=== PATIENT | female | born 1990 | race African-American/Black ===

== ENCOUNTER 2016-12-26 11:04 | Emergency (ER) | payer MEDICAID ==
[2016-12-26] MEDS ORDERED: ONDANSETRON 4 MG TAB.RAPDIS SL ONE (11:43)
--- NOTE | 2016-12-26 11:44 | ER Document Report ---
ED Medical Screen (RME) - General Chief Complaint: Abdominal Pain Stated Complaint: ABDOMINAL PAIN Time Seen by Provider: 12/26/16 11:19 Mode of Arrival: Ambulatory Information source: Patient TRAVEL OUTSIDE OF THE [place] IN LAST 30 DAYS: No - HPI Patient complains to provider of: Lower abdominal pain, nausea and vomiting Onset: Yesterday Notes: 12/26/16 11:43 Patient is a 26-year-old female presenting to the emergency room today complaining of lower abdominal pain, back pain, nausea and vomiting, symptoms started yesterday evening - Related Data Allergies/Adverse Reactions: No Known Allergies Allergy (Verified 12/26/16 11:37) Past Medical History - Social History Family history: Reviewed & Not Pertinent Renal/ Medical History: Denies: Hx Peritoneal Dialysis - Immunizations Immunizations up to date: Yes Hx Diphtheria, Pertussis, Tetanus Vaccination: Yes Physical Exam - Vital signs Vitals: Temp Pulse Resp BP Pulse Ox 98.5 F 68 14 124/84 99 12/26/16 11:09 12/26/16 11:09 12/26/16 11:09 12/26/16 11:09 12/26/16 11:09 Course - Vital Signs Vital signs: Temp Pulse Resp BP Pulse Ox 98.5 F 68 14 124/84 99 12/26/16 11:09 12/26/16 11:09 12/26/16 11:09 12/26/16 11:09 12/26/16 11:09
[2016-12-26 12:28] LABS: ABSOLUTE EOSINOPHILS # (AUTO) 0.1 10^3/uL (0.0-0.6); ABSOLUTE LYMPHOCYTES (AUTO) 2.9 10^3/uL (0.5-4.7); ABSOLUTE MONOCYTES (AUTO) 0.6 10^3/uL (0.1-1.4); ABSOLUTE NEUT (AUTO) 3.6 10^3/uL (1.7-8.2); BASOPHILS % (AUTO) 0.2 % (0-2); EOSINOPHILS % (AUTO) 0.9 % (0-6); HEMATOCRIT 35.4 % (36.0-47.0); HGB HCT DIFFERENCE 0.6; LYMPHOCYTES % (AUTO) 40.2 % (13-45); MEAN CORPUSCULAR HEMOGLOBIN 28.7 pg (27.0-33.4); MEAN CORPUSCULAR HGB CONC 33.9 g/dL (32.0-36.0); MEAN CORPUSCULAR VOLUME 85 fl (80-97); MONOCYTES % (AUTO) 8.9 % (3-13); RED BLOOD COUNT 4.18 10^6/uL (3.72-5.28); RED CELL DISTRIBUTION WIDTH 13.4 % (11.5-14.0); SEGMENTED NEUTROPHILS % (AUTO) 49.8 % (42-78); WHITE BLOOD COUNT 7.2 10^3/uL (4.0-10.5)
[2016-12-26 12:34] LABS: APPEARANCE,URINE SLIGHTLY-CLOUDY; BILIRUBIN,URINE NEGATIVE (NEGATIVE); GLUCOSE, URINE NEGATIVE (NEGATIVE); KETONES,URINE NEGATIVE (NEGATIVE); LEUKOCYTE ESTERASE,URINE NEGATIVE (NEGATIVE); NITRITE,URINE NEGATIVE (NEGATIVE); PROTEIN,URINE NEGATIVE (NEGATIVE); URINE SPECIFIC GRAVITY 1.032
[2016-12-26 12:52] LABS: ALANINE AMINOTRANSFERASE 29 U/L (9-52); ALBUMIN 3.7 g/dL (3.5-5.0); ALKALINE PHOSPHATASE 66 U/L (38-126); ANION GAP 8 (5-19); ASPARTATE AMINO TRANSFERASE 17 U/L (14-36); BILIRUBIN,DIRECT 0.2 mg/dL (0.0-0.4); BILIRUBIN,TOTAL 0.2 mg/dL (0.2-1.3); BLOOD UREA NITROGEN 12 mg/dL (7-20); CALCIUM 9.4 mg/dL (8.4-10.2); CARBON DIOXIDE 28 mmol/L (22-30); CHLORIDE 107 mmol/L (98-107); CREATININE RESULT 0.74 mg/dL (0.52-1.25); GLUCOSE 76 mg/dL (75-110); LIPASE 518.3 U/L (23-300); POTASSIUM 3.5 mmol/L (3.6-5.0); SODIUM 142.9 mmol/L (137-145); TOTAL PROTEIN 6.6 g/dL (6.3-8.2)
[2016-12-26] MEDS ORDERED: MORPHINE SULFATE 10 MG/ML INJ IV ONE (14:00)
--- NOTE | 2016-12-26 14:22 | ER Document Report ---
ED General - General Chief Complaint: Abdominal Pain Stated Complaint: ABDOMINAL PAIN Time Seen by Provider: 12/26/16 11:19 Mode of Arrival: Ambulatory TRAVEL OUTSIDE OF THE [place] IN LAST 30 DAYS: No - HPI Notes: Patient is a 26-year-old female who presents the ED complaining of 2 days of lower abdominal pain, nausea, vomiting. Patient also notes occasional discomfort with sexual intercourse. Her last actual intercourse was yesterday. Patient states that she is in a monogamous relationship and performs unprotected sex. Patient denies any history of STDs in the past. Patient states that she has not been able to keep much food down, but is able to keep some liquids down. Patient states she vomited twice this morning. The pain does not radiate otherwise. Pt having normal BM's. Patient does note occasional back pain in her low back. Patient denies any smoking or IV drug use. She denies any drug allergies. Denies any significant past medical history or daily p.o. medications. Patient denies any vaginal discharge/odor/ bleeding. Denies any headache, fever, neck pain, URI, sore throat, chest pain, palpitations, syncope, cough, shortness of breath, wheeze, dyspnea, diarrhea, urinary retention, dysuria, hematuria, loss of control of bowel or bladder, numbness/tingling, saddle anesthesia, muscle paralysis/weakness, or rash. - Related Data Allergies/Adverse Reactions: No Known Allergies Allergy (Verified 12/26/16 11:37) Past Medical History - General Information source: Patient - Social History Smoking Status: Never Smoker Chew tobacco use (# tins/day): No Frequency of alcohol use: None Drug Abuse: None Family History: Arthritis, CAD, CVA, DM, Hyperlipidemia, Hypertension, Malignancy, Thyroid Disfunction Renal/ Medical History: Denies: Hx Peritoneal Dialysis Surgical Hx: Negative - Immunizations Immunizations up to date: Yes Hx Diphtheria, Pertussis, Tetanus Vaccination: Yes Review of Systems - Review of Systems Notes: REVIEW OF SYSTEMS: CONSTITUTIONAL : Denies fever, chills, or sweats. Denies recent illness. EENT: Denies eye, ear, throat, or mouth pain or symptoms. Denies nasal or sinus congestion or discharge. Denies throat, tongue, or mouth swelling or difficulty swallowing. CARDIOVASCULAR: Denies chest pain. Denies palpitations or racing or irregular heart beat. Denies ankle edema. RESPIRATORY: Denies cough, cold, or chest congestion. Denies shortness of breath, difficulty breathing, or wheezing. GASTROINTESTINAL: see hpi GENITOURINARY: Denies difficulty urinating, painful urination, burning, frequency, blood in urine, or discharge. FEMALE GENITOURINARY: pain during intercourse. Denies vaginal bleeding, heavy or abnormal periods, irregular periods. Denies vaginal discharge or odor. MUSCULOSKELETAL: see hpi SKIN: Denies rash, lesions or sores. NEUROLOGICAL: Denies confusion or altered mental status. Denies passing out or loss of consciousness. Denies dizziness or lightheadedness. Denies headache. Denies weakness or paralysis or loss of use of either side. Denies problems with gait or speech. Denies sensory loss, numbness, or tingling. ALL OTHER SYSTEMS REVIEWED AND NEGATIVE. Dictation was performed using [employer] voice recognition software Physical Exam - Vital signs Vitals: Temp Pulse Resp BP Pulse Ox 98.5 F 68 14 124/84 99 12/26/16 11:09 12/26/16 11:09 12/26/16 11:09 12/26/16 11:09 12/26/16 11:09 Notes: PHYSICAL EXAMINATION: GENERAL: Well-appearing, well-nourished and in no acute distress. A&Ox4 HEAD: Atraumatic, normocephalic. EYES: Pupils equal round and reactive to light, extraocular movements intact, conjunctiva are normal. ENT: EAC's clear bilaterally. TMs intact bilaterally without erythema fluid or perforation. No tonsillar hypertrophy or erythema. No sinus tenderness. NECK: Normal range of motion, supple without lymphadenopathy. No rigidity/ meningismus. LUNGS: Breath sounds clear to auscultation bilaterally and equal. No wheezes rales or rhonchi. HEART: Regular rate and rhythm without murmurs ABDOMEN: Soft, nondistended abdomen. No guarding, no rebound. No masses appreciated. Normal bowel sounds present. CVA tenderness negative bilaterally. + tenderness to lower/pelvic abdomen bilaterally. Female : No inguinal adenopathy. External genitalia without erythema, lesions , or masses. Vaginal mucosa pink with white discharge. Cervix parous, pink, and without discharge. Uterus is smooth. + adnexal tenderness b/l and CMT. Musculoskeletal: LE's b/l: FROM to passive/active. Strength 5+/5. Back: FROM, strength 5+/5. Non-tender. SLR negative b/l. Extremities: No cyanosis/clubbing/edema b/l. Peripheral pulses 2+. Capillary refill less than 3 seconds. NEUROLOGICAL: Normal speech, normal gait. Normal sensory, motor exams PSYCH: Normal mood, normal affect. SKIN: Warm, Dry, normal turgor, no rashes or lesions noted. Course - Re-evaluation Re-evalutation: 12/26/16 18:[address] Perea who also eval'd the patient: Patient is an afebrile, well-hydrated, 26-year-old female who presents the ED with pelvic pain, ?PID. Vitals are stable. PE otherwise unremarkable. CBC, CMP, UA, pregn unremarkable. Lipase elevated >500, but this may be due to release of enzyme from the bowel in lieu of true pancreatitis, pt not tender to epigastrum or RUQ. Wet mount showed BV. Chlam/dawit negative. 250mg rocephin given IM. TVUS unremarkable, possible ruptured cyst with the free fluid noted. I will send her home with doxycycline to take twice daily for 2 weeks along with flagyl twice daily for 1 week. Low suspicion/risk for acute appendicitis, bowel obstruction, acute cholecystitis, acute cholangitis, perforated diverticulitis, incarcerated hernia, pancreatitis, perforated ulcer, peritonitis , sepsis, ectopic , tubo-ovarian abscess, ovarian torsion, or other systemic emergent condition at this time. Patient is aware that her condition can change from initial presentation and she needs to monitor symptoms closely and seek medical attention if any acute changes. Conservative measures otherwise for symptoms. Recheck with OBGYN in 3-5 days. Recheck with your PCM in 2-3 days and have lipase rechecked. Eat a low fat, bland/simple diet with clear fluids. Consider consult with a concrete journeyman. Return to the ED with any worsening/concerning symptoms otherwise as reviewed in discharge. Patient is in agreement. - Vital Signs Vital signs: Temp Pulse Resp BP Pulse Ox 98.4 F 64 16 116/104 H 100 12/26/16 17:06 12/26/16 17:06 12/26/16 17:06 12/26/16 17:06 12/26/16 17:06 - Laboratory Result Diagrams: 12/26/16 12:10 12/26/16 12:10 Laboratory results interpreted by me: 12/26/16 12/26/16 12/26/16 12:10 12:10 12:10 Hct 35.4 L Potassium 3.5 L Lipase 518.3 H Urine Urobilinogen 2.0 H Discharge - Discharge Clinical Impression: Bacterial vaginosis, Elevated lipase, Pelvic pain Condition: Stable Disposition: HOME, SELF-CARE Instructions: Abdominal Pain ([facility]), Doxycycline ([facility]), Metronidazole ([facility]), Observation for Appendicitis ([facility]), Pancreatitis ([facility]), Vaginosis, Bacterial ( [facility]) Additional Instructions: Maintain adequate fluid and food intake Rush diet (B.R.[employer].T.) Bananas, rice, apples, toast, etc Zofran as needed tylenol if needed Take medications as directed. Monitor for any worsening symptoms Clear liquids preferred Recheck with your PCM in 2-3 days--get a recheck of your Lipase level* Consider consult with Gastroenterology for ongoing/worsening symptoms Return to the ED with any worsening symptoms and/or development of fever, headache, chest pain, palpitations, syncope, shortness of breath, trouble breathing, abdominal pain, n/v/d, blood in stool/urine, loss of control of bowel /bladder, urinary retention, muscle weakness/paralysis, saddle anesthesia, numbness/tingling, or other worsening symptoms that are concerning to you. Prescriptions: Doxycycline Hyclate 100 mg PO BID #28 capsule Metronidazole [Flagyl] 500 mg PO BID #14 tablet Ondansetron [Zofran Odt 4 mg Tablet] 1 - 2 tab PO Q4H PRN #15 tab.rapdis PRN Reason: For Nausea/Vomiting Forms: Elevated Blood Pressure, Return to Work Referrals: [facility] [Provider Group] - Follow up as needed [facility] [Provider Group] - Follow up as needed SHEA VICTOR MD [ACTIVE STAFF] - 12/28/16 [facility] [Provider Group] - Follow up in 1 week
[2016-12-26] MEDS ORDERED: CEFTRIAXONE INJ 1000 MG VIAL IV ONE (14:23)
[2016-12-26] MEDS ORDERED: NORMAL SALINE 1000 ML 1,000 ML IV ONE (14:32)
[2016-12-26 16:22] LABS: CHLAM PCR NOT DETECTED (NOT DETECT)
--- NOTE | 2016-12-26 18:17 | RADIOLOGY REPORT (SQ) ---
EXAM DESCRIPTION: U/S NON OB PEL TV W/DOPPLER COMPLETED DATE/TIME: 12/26/2016 5:49 pm REASON FOR STUDY: pelvic pain COMPARISON: 03/03/2015 TECHNIQUE: Dynamic and static grayscale images acquired of the pelvis via transvaginal approach and recorded on PACS. Additional selected color Doppler and spectral images recorded. LIMITATIONS: None. FINDINGS: UTERUS: Contour normal. No mass. ENDOMETRIAL STRIPE: Endometrium is thickened but within normal limits for patient's age. CERVIX: 2.3 cm. No nabothian cysts. RIGHT OVARY: No abnormal masses. RIGHT OVARY DOPPLER: Normal arterial vascular flow without evidence for torsion. LEFT OVARY: No abnormal masses. LEFT OVARY DOPPLER: Normal arterial vascular flow without evidence for torsion. FREE FLUID: There is a small amount of free fluid. OTHER: No other significant finding. MEASUREMENTS: UTERUS: 7.1 x 4.8 x 3.7 cm. ENDOMETRIAL STRIPE: 12 mm. RIGHT OVARY: 3.8 x 2.8 x 3.4 cm. LEFT OVARY: 2.5 x 2.1 x 1.9 cm. IMPRESSION: There is a small amount of fluid in the posterior cul-de-sac. The study is otherwise un remarkable. TECHNICAL DOCUMENTATION: JOB ID: [id number] [employer]- All Rights Reserved
[2016-12-26 19:37] VITALS: BP 133/78
== END 2016-12-26 19:38 | disposition home or self-care (01) ==
LOC: ER 11:04
DX: N76.0 Acute vaginitis (principal); B96.89 Other specified bacterial agents as the cause of diseases classified elsewhere; R74.8 Abnormal levels of other serum enzymes; R10.2 Pelvic and perineal pain; R11.2 Nausea with vomiting, unspecified; N94.10 Unspecified dyspareunia; M54.5 Low back pain
CPT/HCPCS: 99284; 96375; 96365; 36415; 87086; 87210; 83690; 84703; 85025; 80053; 81001; 87491; 87591; 76830; 93976; S0119; J2270; J0696; J7030

== ENCOUNTER 2016-12-29 05:06 | Emergency (ER) | payer MEDICAID ==
[2016-12-29] MEDS ORDERED: LIDOCAINE 1% INJ-PF (10 MG/ML) 30 ML SDV INJ ONE (05:46)
[2016-12-29] MEDS ORDERED: CEFTRIAXONE INJ 250 MG VIAL IM ONE (05:46)
[2016-12-29] MEDS ORDERED: AZITHROMYCIN 250 MG TABLET PO ONE (05:46)
[2016-12-29] MEDS ORDERED: METRONIDAZOLE 500 MG TABLET PO ONE (05:46)
--- NOTE | 2016-12-29 05:49 | ER Document Report ---
ED General - General Chief Complaint: Other Stated Complaint: ABDOMINAL PAIN Time Seen by Provider: 12/29/16 05:36 Notes: Patient is a 26-year-old female comes emergency department for chief complaint of crampy abdominal pain, mainly in her lower abdomen. She states she also had vomiting a couple of days ago but this resolved. She states that she was seen here, diagnosed with a pelvic infection and "I was checked for appendicitis", she states she was discharged with antibiotics for the infection but they were too expensive and she could not fill them. She states that she also was told by work that she could not return until she was cleared to do so with a note. Patient denies fever, she denies worsening pain, she denies flank pain, dysuria , vaginal bleeding. TRAVEL OUTSIDE OF THE [place] IN LAST 30 DAYS: No - Related Data Allergies/Adverse Reactions: No Known Allergies Allergy (Verified 12/26/16 11:37) Past Medical History - General Information source: Patient - Social History Smoking Status: Never Smoker Frequency of alcohol use: None Drug Abuse: None Lives with: Family Family History: Arthritis, CAD, CVA, DM, Hyperlipidemia, Hypertension, Malignancy, Thyroid Disfunction - Medical History Medical History: Negative Renal/ Medical History: Denies: Hx Peritoneal Dialysis Surgical Hx: Negative - Immunizations Immunizations up to date: Yes Hx Diphtheria, Pertussis, Tetanus Vaccination: Yes Review of Systems - Review of Systems Constitutional: No symptoms reported EENT: No symptoms reported Cardiovascular: No symptoms reported Respiratory: No symptoms reported Gastrointestinal: See HPI Genitourinary: See HPI Female Genitourinary: See HPI Musculoskeletal: No symptoms reported Skin: No symptoms reported Hematologic/Lymphatic: No symptoms reported Neurological/Psychological: No symptoms reported Physical Exam - Vital signs Vitals: Temp Pulse Resp BP Pulse Ox 98.2 F 63 18 124/79 100 12/29/16 05:08 12/29/16 05:08 12/29/16 05:08 12/29/16 05:08 12/29/16 05:08 Interpretation: Normal - General General appearance: Appears well, Alert In distress: None - Patient alert, smiling, well-appearing - HEENT Head: Normocephalic, Atraumatic Eyes: Normal Conjunctiva: Normal Extraocular movements intact: Yes Eyelashes: Normal Pupils: PERRL Sinus: Normal Nasal: Normal Mouth/Lips: Normal Mucous membranes: Normal Pharynx: Normal Neck: Normal - Respiratory Respiratory status: No respiratory distress Chest status: Nontender Breath sounds: Normal Chest palpation: Normal - Cardiovascular Rhythm: Regular Heart sounds: Normal auscultation Murmur: No - Abdominal Inspection: Normal Distension: No distension Bowel sounds: Normal Tenderness: Tender - Very mild generalized tenderness over the abdomen, nonspecific, no rigidity, no guarding. No: McBurney's point, Fields's sign, Guarding Organomegaly: No organomegaly - Back Back: Normal, Nontender. No: Tender, CVA tenderness - Extremities General upper extremity: Normal inspection, Nontender, Normal ROM, Normal strength General lower extremity: Normal inspection, Nontender, Normal ROM, Normal strength - Neurological Neuro grossly intact: Yes Cognition: Normal Orientation: AAOx4 [place] Coma Scale Eye Opening: Spontaneous Reyna Coma Scale Verbal: Oriented [place] Coma Scale Motor: Obeys Commands Reyna Coma Scale Total: 15 Speech: Normal Motor strength normal: LUE, RUE, LLE, RLE Sensory: Normal - Psychological Associated symptoms: Normal affect, Normal mood - Skin Skin Temperature: Warm Skin Moisture: Dry Skin Color: Normal Course - Re-evaluation Re-evalutation: Patient with a recent wet mount consistent with bacterial vaginosis and also having 4+ white blood cells. Suggestive of pelvic infection and bacterial vaginosis. Negative for gonorrhea, chlamydia, trichomonas. Patient with mild generalized abdominal pain with no evidence of guarding, no evidence of pancreatitis, appendicitis, or acute abdomen. I did recommend to patient that because of her pain to be thorough I recommended that blood work to reevaluate her including CBC, chemistry, lipase, she declined, states she came for treatment and a work note. Patient was provided with treatment and a work note , I did discuss with patient in detail symptoms of concern and return precautions. Patient states she will return if she worsens in any way. - Vital Signs Vital signs: Temp Pulse Resp BP Pulse Ox 98.2 F 63 18 124/79 100 12/29/16 05:08 12/29/16 05:08 12/29/16 05:08 12/29/16 05:08 12/29/16 05:08 Discharge - Discharge Clinical Impression: Pelvic pain, Bacterial vaginosis Abdominal pain Qualifiers: Abdominal location: generalized Qualified Code(s): R10.84 - Generalized abdominal pain Condition: Stable Disposition: HOME, SELF-CARE Additional Instructions: You have been treated for a pelvic infection and bacterial vaginosis. I also recommend taking stomach healing medication such as [id number] Pepcid for the next couple of days because of recent vomiting. Follow-up with primary care. Return to the emergency department for any concerning or worsening symptoms including development of fever, returned vomiting, developing pain, or any other concerning symptoms. Forms: Return to Work
[2016-12-29 06:38] VITALS: BP 130/73
== END 2016-12-29 06:37 | disposition home or self-care (01) ==
LOC: ER 05:06
DX: N76.0 Acute vaginitis (principal); B96.89 Other specified bacterial agents as the cause of diseases classified elsewhere; R10.84 Generalized abdominal pain
CPT/HCPCS: 99283; 96372; Q0144; J3490 ×2; J0696

== ENCOUNTER 2017-02-06 02:24 | Emergency (ER) | payer MEDICAID ==
--- NOTE | 2017-02-06 02:54 | ER Document Report ---
ED General - General Chief Complaint: Abdominal Cramping Stated Complaint: TOOTHACHE,ABDOMINAL CRAMPING Time Seen by Provider: 02/06/17 02:43 Mode of Arrival: Ambulatory Information source: Patient TRAVEL OUTSIDE OF THE [place] IN LAST 30 DAYS: No - HPI Notes: 27-year-old female presents with initial complaint of right lower tooth pain from a tooth that she states broke approximately 1 week ago while eating. It has been sensitive particularly to cold and heat. Pain with chewing. Moderate pain in this case. No fever or systemic symptoms. No facial swelling or redness. She also mentioned she has been having continued problems with lower abdominal discomfort she states she has been seen multiple times in the past here for this and has seen a event representative. This has been waxing and waning for quite some time worse in the last week. Denies dysuria. No vomiting. No diarrhea or stool change. No malodorous or purulent vaginal discharge. She does note her menses is approximately 3 days late. - Related Data Allergies/Adverse Reactions: No Known Allergies Allergy (Verified 12/26/16 11:37) Home Medications: Current Home Medications No Home Medications 02/06/17 [History] Past Medical History - Social History Smoking Status: Never Smoker Family History: Arthritis, CAD, CVA, DM, Hyperlipidemia, Hypertension, Malignancy, Thyroid Disfunction Renal/ Medical History: Denies: Hx Peritoneal Dialysis - Immunizations Immunizations up to date: Yes Hx Diphtheria, Pertussis, Tetanus Vaccination: Yes Review of Systems - Review of Systems -: Yes All other systems reviewed and negative Physical Exam - Vital signs Vitals: Temp Pulse Resp BP Pulse Ox 98.6 F 66 16 128/73 H 100 02/06/17 02:30 02/06/17 02:30 02/06/17 02:30 02/06/17 02:30 02/06/17 02:30 - Notes Notes: GENERAL: VS as per nursing doc. afebrile. Well-appearing, well-nourished and in no acute distress. HEAD: Atraumatic, normocephalic. EYES: Pupils equal round and reactive to light, extraocular movements intact, sclera anicteric, no conjunctival injection or discharge. ENT: Nares patent, oropharynx clear without exudates, moist mucous membranes. There is a dental fracture area she has had a cavity repaired approximately tooth 29 which is in the lower right mouth. Mild sensitivity. There is no adjacent erythema or fluctuance or overlying facial erythema. NECK: Normal range of motion, supple without lymphadenopathy. LUNGS: Breath sounds clear to auscultation bilaterally and equal. No wheezes rales or rhonchi. HEART: Regular rate and rhythm without murmurs. ABDOMEN: Soft, non-tender, minimal generalized lower abdominal tenderness without rebound or guarding. No appreciable mass though slightly limited secondary to habitus. BACK: No CVA tenderness. EXTREMITIES: Normal range of motion, no calf tenderness, no edema. NEUROLOGICAL: Cranial nerves grossly intact. Normal speech. Normal sensory and motor exams. No gross cerebellar abnormalities. PSYCH: Normal mood, normal affect. SKIN: Warm, dry, normal turgor, no lesions noted. Course - Re-evaluation Re-evalutation: 02/06/17 02:53 Patient has a dental fracture and will obviously need to see a dentist for definitive care. I see no signs of infection at this point. Her abdominal pain appears more chronic in nature. Will obtain labs to rule out any significant pathology. She had an ultrasound approximately a month ago which showed some mild free fluid. I have encouraged her to obtain a primary care physician for continued follow-up and management. Labs and urine are pending at this point including hCG. 02/06/17 03:41 Patient's hCG is positive. She is having no vaginal bleeding. Her pain is very nondescript. 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 By dates she is only 3 days past her normal menses so this should be very early. We discussed ectopic warning signs to watch for. She voices understanding. We will add on a quantitative hCG for reference/comparison in case she has further problems. - Vital Signs Vital signs: Temp Pulse Resp BP Pulse Ox 98.6 F 66 16 128/73 H 100 02/06/17 02:30 02/06/17 02:30 02/06/17 02:30 02/06/17 02:30 02/06/17 02:30 - Laboratory Result Diagrams: 02/06/17 03:05 Laboratory results interpreted by me: 02/06/17 02:53 Urine Urobilinogen 2.0 H Ur Leukocyte Esterase TRACE H Urine HCG, Qual POSITIVE H Discharge - Discharge Clinical Impression: Pain, dental, Abdominal pain, Condition: Good Disposition: HOME, SELF-CARE Instructions: Abdominal Pain ([facility]), Toothache ([facility]) Additional Instructions: Return for any problem or concern, fever, worsening symptoms otherwise. You will need definitive care of your tooth which will need to be provided through a dentist. May use Tylenol as directed for discomfort. Please contact your OBGYN to arrange follow-up. Forms: Return to School, Return to Work
[2017-02-06 03:25] LABS: ABSOLUTE EOSINOPHILS # (AUTO) 0.1 10^3/uL (0.0-0.6); ABSOLUTE MONOCYTES (AUTO) 0.5 10^3/uL (0.1-1.4); HEMOGLOBIN 12.5 g/dL (12.0-15.5); MONOCYTES % (AUTO) 5.9 % (3-13)
[2017-02-06 03:26] LABS: APPEARANCE,URINE SLIGHTLY-CLOUDY; BILIRUBIN,URINE NEGATIVE (NEGATIVE); GLUCOSE, URINE NEGATIVE (NEGATIVE); KETONES,URINE NEGATIVE (NEGATIVE); LEUKOCYTE ESTERASE,URINE TRACE (NEGATIVE); NITRITE,URINE NEGATIVE (NEGATIVE); PROTEIN,URINE NEGATIVE (NEGATIVE); URINE SPECIFIC GRAVITY 1.031
[2017-02-06 03:28] LABS: ABSOLUTE LYMPHOCYTES (AUTO) 3.2 10^3/uL (0.5-4.7); ABSOLUTE NEUT (AUTO) 5.4 10^3/uL (1.7-8.2); BASOPHILS % (AUTO) 0.5 % (0-2); EOSINOPHILS % (AUTO) 0.8 % (0-6); HGB HCT DIFFERENCE 0.5; MEAN CORPUSCULAR HEMOGLOBIN 28.8 pg (27.0-33.4); MEAN CORPUSCULAR HGB CONC 33.8 g/dL (32.0-36.0); MEAN CORPUSCULAR VOLUME 85 fl (80-97); RED BLOOD COUNT 4.34 10^6/uL (3.72-5.28); RED CELL DISTRIBUTION WIDTH 13.6 % (11.5-14.0); SEGMENTED NEUTROPHILS % (AUTO) 57.8 % (42-78); WHITE BLOOD COUNT 9.3 10^3/uL (4.0-10.5)
[2017-02-06 03:54] VITALS: BP 126/70
[2017-02-06 04:07] LABS: ADD ON TESTING BLD IN LAB ACKNOWLEDGE
== END 2017-02-06 03:53 | disposition home or self-care (01) ==
LOC: ER 02:24
DX: K08.89 Other specified disorders of teeth and supporting structures (principal); R10.9 Unspecified abdominal pain; Z3A.01 Less than 8 weeks gestation of pregnancy
CPT/HCPCS: 36415; 81001; 81025; 84702; 85025; 99284

== ENCOUNTER 2017-02-18 13:12 | Emergency (ER) | payer MEDICAID ==
[2017-02-18] MEDS ORDERED: NORMAL SALINE 1000 ML 1,000 ML IV ONE (14:05)
--- NOTE | 2017-02-18 14:05 | ER Document Report ---
ED Medical Screen (RME) - General Chief Complaint: Nausea/Vomiting Stated Complaint: FLU LIKE SYMPTOMS Time Seen by Provider: 02/18/17 14:04 Notes: 5 to 6 weeks preg with pain/vomiting. no bleeding TRAVEL OUTSIDE OF THE [place] IN LAST 30 DAYS: No - Related Data Allergies/Adverse Reactions: No Known Allergies Allergy (Verified 02/18/17 13:31) Past Medical History - Social History Frequency of alcohol use: None Drug Abuse: None Family history: Reviewed & Not Pertinent Renal/ Medical History: Denies: Hx Peritoneal Dialysis - Immunizations Immunizations up to date: Yes Hx Diphtheria, Pertussis, Tetanus Vaccination: Yes History of Influenza Vaccine for 12/2016 - 05/2017 Season: No Physical Exam - Vital signs Vitals: Temp Pulse Resp BP Pulse Ox 99.3 F 68 16 137/72 H 100 02/18/17 13:29 02/18/17 13:29 02/18/17 13:29 02/18/17 13:29 02/18/17 13:29 Course - Vital Signs Vital signs: Temp Pulse Resp BP Pulse Ox 99.3 F 68 16 137/72 H 100 02/18/17 13:29 02/18/17 13:29 02/18/17 13:29 02/18/17 13:29 02/18/17 13:29
[2017-02-18] MEDS ORDERED: METOCLOPRAMIDE HCL INJ/PF 10 MG/2 ML SDV IV ONE (14:06)
[2017-02-18 14:37] LABS: APPEARANCE,URINE SLIGHTLY-CLOUDY; BILIRUBIN,URINE NEGATIVE (NEGATIVE); GLUCOSE, URINE NEGATIVE (NEGATIVE); KETONES,URINE 20 mg/dL (NEGATIVE); LEUKOCYTE ESTERASE,URINE TRACE (NEGATIVE); NITRITE,URINE NEGATIVE (NEGATIVE); PROTEIN,URINE 30 mg/dL (NEGATIVE); URINE SPECIFIC GRAVITY 1.025
[2017-02-18 14:56] LABS: ABSOLUTE BASOPHILS # (AUTO) 0.1 10^3/uL (0.0-0.2); ABSOLUTE LYMPHOCYTES (AUTO) 1.6 10^3/uL (0.5-4.7); ABSOLUTE MONOCYTES (AUTO) 0.5 10^3/uL (0.1-1.4); ABSOLUTE NEUT (AUTO) 6.6 10^3/uL (1.7-8.2); BASOPHILS % (AUTO) 0.7 % (0-2); EOSINOPHILS % (AUTO) 0.2 % (0-6); HEMATOCRIT 37.4 % (36.0-47.0); HEMOGLOBIN 12.7 g/dL (12.0-15.5); HGB HCT DIFFERENCE 0.7; LYMPHOCYTES % (AUTO) 18.8 % (13-45); MEAN CORPUSCULAR HEMOGLOBIN 28.5 pg (27.0-33.4); MEAN CORPUSCULAR HGB CONC 33.9 g/dL (32.0-36.0); MEAN CORPUSCULAR VOLUME 84 fl (80-97); MONOCYTES % (AUTO) 5.6 % (3-13); RED BLOOD COUNT 4.44 10^6/uL (3.72-5.28); RED CELL DISTRIBUTION WIDTH 13.4 % (11.5-14.0); SEGMENTED NEUTROPHILS % (AUTO) 74.7 % (42-78); WHITE BLOOD COUNT 8.8 10^3/uL (4.0-10.5)
[2017-02-18 15:18] LABS: ALANINE AMINOTRANSFERASE 29 U/L (9-52); ALBUMIN 3.9 g/dL (3.5-5.0); ALKALINE PHOSPHATASE 58 U/L (38-126); ANION GAP 13 (5-19); ASPARTATE AMINO TRANSFERASE 13 U/L (14-36); BILIRUBIN,DIRECT 0.4 mg/dL (0.0-0.4); BILIRUBIN,TOTAL 0.4 mg/dL (0.2-1.3); BLOOD UREA NITROGEN 6 mg/dL (7-20); CALCIUM 9.7 mg/dL (8.4-10.2); CARBON DIOXIDE 25 mmol/L (22-30); CHLORIDE 102 mmol/L (98-107); CREATININE RESULT 0.67 mg/dL (0.52-1.25); GLUCOSE 110 mg/dL (75-110); POTASSIUM 3.5 mmol/L (3.6-5.0); SODIUM 139.5 mmol/L (137-145); TOTAL PROTEIN 7.2 g/dL (6.3-8.2)
[2017-02-18] MEDS ORDERED: LIDOCAINE 2% VISCOUS SOLN 20 ML UDCUP PO ONE (16:17)
[2017-02-18] MEDS ORDERED: MAG HYDROX/AL HYDROX/SIMETH SUSP 30 ML UDCUP PO ONE (16:17)
--- NOTE | 2017-02-18 16:49 | RADIOLOGY REPORT (SQ) ---
EXAM DESCRIPTION: U/S OB TRANSVAGINAL W/O DOP COMPLETED DATE/TIME: 02/18/2017 4:31 pm REASON FOR STUDY: preg/pain COMPARISON: 01/17/2016 TECHNIQUE: Transvaginal static and realtime grayscale images acquired of the pelvis. Additional danielle cted spectral and color Doppler images recorded. All images stored on PACs. bHCG: Not available. LIMITATIONS: None. FINDINGS: FETUS: Living intrauterine . EGA: 5 weeks 6 days RIDDHI: 10/15/2017 FHR: heart motion was suggested but not able to be measured. SUBCHORIONIC BLEED: No SIZE OF BLEED: Not applicable. UTERUS: 8.8 x 6.9 x 4.5 cm. No masses or anomalies. CERVICAL LENGTH: 1.9 cm. Closed. RIGHT ADNEXA: Normal ovary with normal vascular flow. 3.3 x 1.6 x 2.1 cm. No adnexal free fluid. No adnexal masses. LEFT ADNEXA: Ovary with normal vascular flow. 3.6 x 3.8 x 2.4 cm. There is a 12 mm cyst. No adnexal free fluid. No adnexal masses. FREE FLUID: None. OTHER: No other significant finding. IMPRESSION: LIVING INTRAUTERINE . EGA 5 weeks 6 days. Follow-up as clinically indicated. Trimester of : First - 0 to 13 weeks. TECHNICAL DOCUMENTATION: JOB ID: [id number] [employer]- All Rights Reserved
--- NOTE | 2017-02-18 17:08 | ER Document Report ---
ED GI/ <TARAS CHUN - Last Filed: 02/18/17 17:30> - General Mode of Arrival: Ambulatory Information source: Patient TRAVEL OUTSIDE OF THE [place] IN LAST 30 DAYS: No <ZULEYMA CONWAY - Last Filed: 02/18/17 19:12> - General Chief Complaint: Nausea/Vomiting Stated Complaint: FLU LIKE SYMPTOMS Time Seen by Provider: 02/18/17 14:04 Notes: Patient is a 27-year-old female, , that presents to the emergency department today with complaints of vomiting with associated abdominal cramping. Patient states her pain today is similar to period cramps. Patient states she has been having the above-mentioned symptoms for 1 week. Patient denies any vaginal bleeding. (ZULEMYA CONWAY) - Related Data Allergies/Adverse Reactions: No Known Allergies Allergy (Verified 02/18/17 13:31) Past Medical History - General Information source: Patient - Social History Smoking Status: Never Smoker Cigarette use (# per day): No Frequency of alcohol use: None Drug Abuse: None Lives with: Family Family History: Arthritis, CAD, CVA, DM, Hyperlipidemia, Hypertension, Malignancy, Thyroid Disfunction Patient has suicidal ideation: No Patient has homicidal ideation: No Renal/ Medical History: Denies: Hx Peritoneal Dialysis Surgical Hx: Negative - Immunizations Immunizations up to date: Yes Hx Diphtheria, Pertussis, Tetanus Vaccination: Yes <ZULEYMA CONWAY - Last Filed: 02/18/17 19:12> Review of Systems - Review of Systems Constitutional: No symptoms reported EENT: No symptoms reported Cardiovascular: No symptoms reported Respiratory: No symptoms reported Gastrointestinal: See HPI, Abdominal pain, Vomiting Genitourinary: No symptoms reported Female Genitourinary: See HPI, . denies: Vaginal bleeding Musculoskeletal: No symptoms reported Skin: No symptoms reported Hematologic/Lymphatic: No symptoms reported Neurological/Psychological: No symptoms reported -: Yes All other systems reviewed and negative <ZULEYMA CONWAY - Last Filed: 02/18/17 19:12> Physical Exam <TARAS CHUN - Last Filed: 02/18/17 17:30> <ZULEYMA CONWAY - Last Filed: 02/18/17 19:12> - Vital signs Vitals: Temp Pulse Resp BP Pulse Ox 99.3 F 68 16 137/72 H 100 02/18/17 13:29 02/18/17 13:29 02/18/17 13:29 02/18/17 13:29 02/18/17 13:29 - Notes Notes: Physical Exam: General: Alert, appears well. HEENT: Normocephalic. Atraumatic. PERRL. Extraocular movements intact. Oropharynx clear. Neck: Supple. Non-tender. Respiratory: No respiratory distress. Clear and equal breath sounds bilaterally. Cardiovascular: Regular rate and rhythm. Abdominal: Epigastric tenderness with palpation. No distension. Normal Bowel Sounds. Back: Non-tender. No deformity or step off. Extremities: Moves all four extremities. Upper extremities: Normal inspection. Normal ROM. Lower extremities: Normal inspection. No edema. Normal ROM. Neurological: Normal cognition. AAOx4. Normal speech. Psychological: Normal affect. Normal Mood. Skin: Warm. Dry. Normal color. (ZULEYMA CONWAY) Course - Laboratory Result Diagrams: 02/18/17 14:40 02/18/17 14:40 <TARAS CHUN - Last Filed: 02/18/17 17:30> - Laboratory Result Diagrams: 02/18/17 14:40 02/18/17 14:40 <ZULEYMA CONWAY - Last Filed: 02/18/17 19:12> - Re-evaluation Re-evalutation: 02/18/17 17:30 Epigastric discomfort is improved after GI cocktail (TARAS CHUN) - Vital Signs Vital signs: Temp Pulse Resp BP Pulse Ox 98.1 F 72 18 135/88 H 99 02/18/17 18:13 02/18/17 18:13 02/18/17 18:13 02/18/17 18:13 02/18/17 18:13 - Laboratory Laboratory results interpreted by me: 02/18/17 02/18/17 14:11 14:40 Potassium 3.5 L BUN 6 L AST 13 L Beta HCG, Quant 52437.00 H Urine Protein 30 H Urine Ketones 20 H Urine Urobilinogen 2.0 H Ur Leukocyte Esterase TRACE H Discharge <TARAS CHUN - Last Filed: 02/18/17 17:30> <ZULEYMA CONWAY - Last Filed: 02/18/17 19:12> - Discharge Clinical Impression: 6 weeks gestation of , Pelvic cramping, Epigastric pain Nausea & vomiting Qualifiers: Vomiting type: unspecified Vomiting Intractability: non-intractable Qualified Code(s): R11.2 - Nausea with vomiting, unspecified Condition: Stable Disposition: HOME, SELF-CARE Additional Instructions: : You are . care is best started as early in as possible. If you're unsure about continuing this , you should discuss this with your physician or with roll out manager at [facility]. You should take only medications approved by your physician. Acetaminophen can safely be taken for minor pains. As a rule, medication for chronic conditions such as asthma or seizures can safely be continued. You should discuss with the physician every medicine you take. Any regular exercise program can be continued. Talk to your physician, however, before engaging in competitive or demanding sports. Alcohol, smoking, and "street drugs" are dangerous to your baby. Cocaine is especially dangerous. Don't use any illicit drugs! Reflux Disease (GERD) Gastro-Esophageal Reflux Disease (GERD) is caused by stomach acid refluxing back up into the esophagus. The valve at the end of the esophagus may be weak. This is common in persons with a hiatal hernia. GERD symptoms can include indigestion, chest pain, heartburn, or food "sticking." Certain foods, alcohol, and aspirin can make GERD worse. Treatment depends on the severity. Usually, antacids or acid-suppressing medicines are used. When the esophagus is acutely inflamed, the physician will often prescribe membrane-protective drugs such as Carafate. Some patients benefit from medication such as Reglan that tightens the valve at the top of the stomach. Avoid those foods that bring on your symptoms. For many people, these foods are coffee, chocolate, onions, garlic, and carbonated drinks. Don't use alcohol, aspirin, caffeine, or tobacco. Don't eat late at night -- within 4 hours of bedtime. Don't over-eat. If necessary, elevate the head of your bed about 4 inches so that stomach acid will not roll up into your esophagus. Call the doctor if you develop severe chest pain, inability to swallow fluids, fever, or worsening symptoms. Take medications as prescribed for nausea if needed. Eat a bland diet for the next several days. Take antacids between meals and at bedtime. Follow-up with [facility] or the health department for your care. RETURN TO THE EMERGENCY ROOM IF ANY NEW OR WORSENING SYMPTOMS. Prescriptions: Metoclopramide HCl [Reglan 10 mg Tablet] 1 tab PO ASDIR PRN #25 tablet PRN Reason: Referrals: [facility] [Provider Group] - Follow up in 3-5 days Scribe Attestation: 02/18/17 17:32 I personally performed the services described in the documentation, reviewed and edited the documentation which was dictated to the scribe in my presence, and it accurately records my words and actions. (TARAS CHUN) Scribe Documentation - Scribe Written by Jackie:: Jackie Felipe, 02/18/2017 1905 acting as scribe for :: Cynthia <ZULEYMA CONWAY - Last Filed: 02/18/17 19:12>
[2017-02-18 18:14] VITALS: BP 135/88
== END 2017-02-18 18:14 | disposition home or self-care (01) ==
LOC: ER 13:12
DX: R10.13 Epigastric pain (principal); R10.2 Pelvic and perineal pain; R11.2 Nausea with vomiting, unspecified; Z3A.01 Less than 8 weeks gestation of pregnancy
CPT/HCPCS: 99284; 96361; 96374; 36415; 84702; 85025; 80053; 81001; 76817; J3490 ×2; J2765; J7030

== ENCOUNTER → 2017-03-14 | Outpatient (CLI) | payer SELFPAY ==
--- NOTE | 2017-03-14 17:04 | RADIOLOGY REPORT (SQ) ---
EXAM DESCRIPTION: U/S [id number] TRNABD 1GES W/ODOP COMPLETED DATE/TIME: 03/14/2017 4:52 pm REASON FOR STUDY: Z34.01 ENCNTR FOR SUPRVSN OF NORMAL FIRST PREG, FIRST TRIMESTER Z34.01 ENCNTR FOR SUPRVSN OF NORMAL FIRST PREG, FIRST TRIMES COMPARISON: 02/18/2017 TECHNIQUE: Transabdominal static and realtime grayscale images acquired of the pelvis. Additional se lected spectral and color Doppler images recorded. All images stored on PACs. bHCG: Not available LIMITATIONS: Adnexal bowel gas FINDINGS: FETUS: Living intrauterine . EGA: 8 weeks 5 days by crown-rump length RIDDHI: 10/19/2017 FHR: 171 beats per minute. SUBCHORIONIC BLEED: No SIZE OF BLEED: Not applicable. UTERUS: Uterus is 11.7 x 9 x 6.6 cm in size. Anterior uterine body fibroid 3.5 cm size. CERVICAL LENGTH: 2.4 cm Closed. RIGHT ADNEXA: Not well seen due to bowel gas LEFT ADNEXA: Not well seen due to bowel gas FREE FLUID: None. OTHER: No other significant finding. IMPRESSION: LIVING INTRAUTERINE . EGA 8 weeks 5 days Trimester of : First - 0 to 13 weeks. TECHNICAL DOCUMENTATION: JOB ID: [id number] [employer]- All Rights Reserved
== END ==
LOC: RAD 16:11
PROVIDERS: ATTEND Nurse Practitioner Women's Health
DX: Z34.01 Encounter for supervision of normal first pregnancy, first trimester (principal)
CPT/HCPCS: 76801

== ENCOUNTER 2017-06-04 15:10 | Emergency (ER) | payer MEDICAID ==
--- NOTE | 2017-06-04 15:50 | ER Document Report ---
ED General - General Chief Complaint: Vomiting Stated Complaint: ABDOMINAL PAIN, VOMITING Time Seen by Provider: 06/04/17 15:39 Mode of Arrival: Ambulatory Information source: Patient Notes: 27-year-old female 1 para 0 approximately 16 weeks presents with complaints of abdominal cramping sensations. Patient notes that symptoms started earlier today Patient denies any fevers or chills denies any vaginal bleeding TRAVEL OUTSIDE OF THE [place] IN LAST 30 DAYS: No - HPI Onset: Just prior to arrival Onset/Duration: Sudden Quality of pain: Cramping Severity: Mild Pain Level: 1 Context: Patient took 1000 g Tylenol prior to arrival Associated symptoms: Other Exacerbated by: Denies Relieved by: Denies Similar symptoms previously: No Recently seen / treated by doctor: No - Related Data Allergies/Adverse Reactions: No Known Allergies Allergy (Verified 06/04/17 15:13) Past Medical History - Social History Smoking Status: Never Smoker Cigarette use (# per day): No Chew tobacco use (# tins/day): No Smoking Education Provided: No Frequency of alcohol use: None Drug Abuse: None Family History: Arthritis, CAD, CVA, DM, Hyperlipidemia, Hypertension, Malignancy, Thyroid Disfunction Patient has suicidal ideation: No Patient has homicidal ideation: No Renal/ Medical History: Denies: Hx Peritoneal Dialysis - Immunizations Immunizations up to date: Yes Hx Diphtheria, Pertussis, Tetanus Vaccination: Yes Review of Systems - Review of Systems Notes: REVIEW OF SYSTEMS: CONSTITUTIONAL : Denies fever, chills, or sweats. Denies recent illness. EENT: Denies eye, ear, throat, or mouth pain or symptoms. Denies nasal or sinus congestion or discharge. Denies throat, tongue, or mouth swelling or difficulty swallowing. CARDIOVASCULAR: Denies chest pain. Denies palpitations or racing or irregular heart beat. Denies ankle edema. RESPIRATORY: Denies cough, cold, or chest congestion. Denies shortness of breath, difficulty breathing, or wheezing. GASTROINTESTINAL: Denies abdominal pain or distention. Denies nausea, vomiting , or diarrhea. Denies blood in vomitus, stools, or per rectum. Denies black, tarry stools. Denies constipation. GENITOURINARY: Denies difficulty urinating, painful urination, burning, frequency, blood in urine, or discharge. FEMALE GENITOURINARY: Admits to pelvic pain MUSCULOSKELETAL: Denies back or neck pain or stiffness. Denies joint pain or swelling. SKIN: Denies rash, lesions or sores. HEMATOLOGIC : Denies easy bruising or bleeding. LYMPHATIC: Denies swollen, enlarged glands. NEUROLOGICAL: Denies confusion or altered mental status. Denies passing out or loss of consciousness. Denies dizziness or lightheadedness. Denies headache. Denies weakness or paralysis or loss of use of either side. Denies problems with gait or speech. Denies sensory loss, numbness, or tingling. Denies seizures. PSYCHIATRIC: Denies anxiety or stress. Denies depression, suicidal ideation, or homicidal ideation. ALL OTHER SYSTEMS REVIEWED AND NEGATIVE. PHYSICAL EXAMINATION: GENERAL: Well-appearing, well-nourished and in no acute distress. HEAD: Atraumatic, normocephalic. EYES: Pupils equal round and reactive to light, extraocular movements intact, conjunctiva are normal. ENT: Nares patent, oropharynx clear without exudates. Moist mucous membranes. NECK: Normal range of motion, supple without lymphadenopathy LUNGS: Breath sounds clear to auscultation bilaterally and equal. No wheezes rales or rhonchi. HEART: Regular rate and rhythm without murmurs ABDOMEN: Soft, nontender, nondistended abdomen. No guarding, no rebound. No masses appreciated. Female : deferred Musculoskeletal: Normal range of motion, no pitting or edema. No cyanosis. NEUROLOGICAL: Cranial nerves grossly intact. Normal speech, normal gait. Normal sensory, motor exams PSYCH: Normal mood, normal affect. SKIN: Warm, Dry, normal turgor, no rashes or lesions noted. Dictation was performed using [employer] voice recognition software Physical Exam - Vital signs Vitals: Temp Pulse Resp BP Pulse Ox 98.6 F 68 16 143/67 H 100 06/04/17 15:16 06/04/17 15:16 06/04/17 15:16 06/04/17 15:16 06/04/17 15:16 Course - Re-evaluation Re-evalutation: 06/04/17 15:49 Patient's examination is quite benign she is extremely well-appearing no distress, I believe the pain is round ligamentous pain associated with her , she overall looks well is in no distress is afebrile urinalysis and ultrasound are pending 06/04/17 17:41 Patient's presentation is consistent with urinary tract infection, urine culture has been ordered patient will be started on Keflex, a copy of her ultrasound report has been provided to her as well. She otherwise is stable well-appearing in no distress After performing a Medical Screening Examination, I estimate there is LOW risk for ACUTE APPENDICITIS, BOWEL OBSTRUCTION, ACUTE CHOLECYSTITIS, PERFORATED DIVERTICULITIS, INCARCERATED HERNIA, PANCREATITIS, PELVIC INFLAMMATORY DISEASE, PERFORATED ULCER, ECTOPIC , or TUBO-OVARIAN ABSCESS, thus I consider the discharge disposition reasonable. Also, there is no evidence or peritonitis , sepsis, or toxicity. I have reevaluated this patient multiple times and no significant life threatening changes are noted. The patient and I have discussed the diagnosis and risks, and we agree with discharging home with close follow-up with the understanding that symptoms and presentations can change. We also discussed returning to the Emergency Department immediately if new or worsening symptoms occur. We have discussed the symptoms which are most concerning (e.g., bloody stool, fever, changing or worsening pain, vomiting) that necessitate immediate return. - Vital Signs Vital signs: Temp Pulse Resp BP Pulse Ox 98.8 F 61 20 124/60 100 06/04/17 17:36 06/04/17 17:36 06/04/17 17:36 06/04/17 17:36 06/04/17 17:36 - Laboratory Laboratory results interpreted by me: 06/04/17 15:55 Urine Protein 100 H Urine Ketones 20 H Urine Urobilinogen 2.0 H Ur Leukocyte Esterase MODERATE H - Diagnostic Test Radiology reviewed: Image reviewed, Reports reviewed - report iven to the patient Discharge - Discharge Clinical Impression: Vomiting affecting , UTI in Condition: Stable Disposition: HOME, SELF-CARE Instructions: Urinary Tract Infection ([facility]) Additional Instructions: Follow up with your physician tomorrow for further care or return to the ED IMMEDIATELY if symptoms worsen or new concerns occur. If you cannot afford to follow up with your primary care physician a list of low cost clinics have been provided at the end of your discharge papers as well. Prescriptions: Cephalexin Monohydrate [Keflex 500 mg Capsule] 500 mg PO BID 7 Days capsule
[2017-06-04 16:11] LABS: APPEARANCE,URINE CLOUDY; BILIRUBIN,URINE NEGATIVE (NEGATIVE); COLOR,URINE AMBER; GLUCOSE, URINE NEGATIVE (NEGATIVE); KETONES,URINE 20 mg/dL (NEGATIVE); LEUKOCYTE ESTERASE,URINE MODERATE (NEGATIVE); NITRITE,URINE NEGATIVE (NEGATIVE); PROTEIN,URINE 100 mg/dL (NEGATIVE); URINE SPECIFIC GRAVITY 1.033
--- NOTE | 2017-06-04 17:30 | RADIOLOGY REPORT (SQ) ---
EXAM DESCRIPTION: U/S OB LIMITED COMPLETED DATE/TIME: 06/04/2017 5:17 pm REASON FOR STUDY: 16 weeks , pelvic pain COMPARISON: 03/14/2017 TECHNIQUE: Limited transabdominal grayscale ultrasound for evaluation of specific requested obstetri prudence parameters. LIMITATIONS: None. FINDINGS: CERVICAL LENGTH: 2.5 cm Closed. SAMMIE: Largest pocket 4 cm FHR: 141 beats per minute. PRESENTATION: Cephalic. OTHER: Posterior placenta without ultrasound evidence of abruption or previa. Right ovary 2.7 x 2.4 x 2.3 cm in size, left ovary 2.3 x 3.3 x 2.2 cm in size. Patient is clinically 20 weeks 3 days pregn ant IMPRESSION: LIMITED OBSTETRICAL ULTRASOUND WITH MEASURED PARAMETERS DELINEATED ABOVE. Trimester of : Second trimester - 13 weeks 1 day to 27 weeks 6 days. TECHNICAL DOCUMENTATION: JOB ID: [id number] [employer]- All Rights Reserved Reading location - IP/workstation name: [email or web address]
[2017-06-04 17:39] VITALS: BP 124/60
== END 2017-06-04 17:42 | disposition home or self-care (01) ==
LOC: ER 15:10
DX: O21.2 Late vomiting of pregnancy (principal); O23.42 Unspecified infection of urinary tract in pregnancy, second trimester; O26.892 Other specified pregnancy related conditions, second trimester; R10.2 Pelvic and perineal pain; Z3A.20 20 weeks gestation of pregnancy
CPT/HCPCS: 76815; 81001; 87086; 99284

== ENCOUNTER 2017-06-28 17:37 | Emergency (ER) | payer MEDICAID ==
[2017-06-28 17:46] VITALS: BP 115/58
--- NOTE | 2017-06-28 18:24 | ER Document Report ---
ED GI/ - General Chief Complaint: Diarrhea Stated Complaint: DIARRHEA Time Seen by Provider: 06/28/17 18:19 Mode of Arrival: Ambulatory Information source: Patient TRAVEL OUTSIDE OF THE [place] IN LAST 30 DAYS: No - HPI Patient complains to provider of: Diarrhea Notes: 06/28/17 18:19 The patient is here with complaints of needing a work note. She works around food. She states that she ate some [employer] earlier today and had one episode of diarrhea while she was at work, therefore her boss made her go home and states that she needs a work note to return to work. She states that this is very common if she eats greasy food. She is approximately 6 months . She denies any vomiting. She denies any blood in her stool, she denies any recent travel outside the [place]. She denies being on antibiotics recently. She denies any current abdominal pain. No chest pain or shortness of breath. She states that she would not have come in if her boss was not requiring her to obtain a work note to return to work. This point she has 0 complaints. - Related Data Allergies/Adverse Reactions: No Known Allergies Allergy (Verified 06/04/17 15:13) Past Medical History - Social History Smoking Status: Never Smoker Family History: Arthritis, CAD, CVA, DM, Hyperlipidemia, Hypertension, Malignancy, Thyroid Disfunction Patient has suicidal ideation: No Patient has homicidal ideation: No Renal/ Medical History: Denies: Hx Peritoneal Dialysis - Immunizations Immunizations up to date: Yes Hx Diphtheria, Pertussis, Tetanus Vaccination: Yes Review of Systems - Review of Systems -: Yes All other systems reviewed and negative Physical Exam - Vital signs Vitals: Temp Pulse Resp BP Pulse Ox 97.9 F 69 18 115/58 L 99 06/28/17 17:45 06/28/17 17:45 06/28/17 17:45 06/28/17 17:45 06/28/17 17:45 - Notes Notes: GENERAL: alert, cooperative, nontoxic, no distress. HEAD: normocephalic, atraumatic EYES: conjunctiva pink without discharge, no external redness or swelling. EARS: no external swelling, no external redness NOSE: atraumatic, no external swelling MOUTH/THROAT: mucous membranes moist and pink, posterior pharynx without erythema, swelling, exudate. No trismus or drooling. NECK: soft, supple, full range of motion, no meningismus. CHEST: no distress, lungs clear and equal throughout. No wheezing, rales, rhonchi. CARDIAC: regular rate and rhythm, no murmur, normal capillary refill, normal pulses. No peripheral edema noted. ABDOMEN: Soft, nontender. Gravid abdomen with movement present. No rebound tenderness or guarding. BACK: full range of motion, no CVA tenderness. EXTREMITIES: full range of motion of all extremities. No redness, no swelling. NEURO: alert and oriented x 3, no focal deficits, full range of motion of all extremities. PYSCH: appropriate mood, affect. Patient is cooperative. SKIN: pink, warm, dry, no rash. Course - Re-evaluation Re-evalutation: 06/28/17 18:21 Patient is nontoxic appearing with stable vitals. She is here to get a work note to return to work. She ate [employer] and states that anytime she eats greasy food she has diarrhea. She had one episode of diarrhea while at work and her boss sent her home and is requiring her to have a work note to return. No fevers, no blood in her stool, no recent travel, no recent antibiotics. She has no significant risks for C. difficile or other infectious diarrhea. She has no abdominal pain. She has no abdominal tenderness on exam. Patient states that she feels completely fine and would not be here if she was not required to get a work note. This point patient can be discharged home with a note to return back to work tomorrow as long as she does not continue to have diarrhea, develop fever, blood in her stool, or have any further concerns. She is instructed to return for any significant worsening symptoms or follow up with her primary care doctor. The patient's emergency department workup and current diagnosis were explained to the patient and or family. Follow-up instructions were provided. Medications if prescribed were discussed. Instructions for when to return to the emergency department including specific worrisome symptoms were discussed with the patient and/or family. - Vital Signs Vital signs: Temp Pulse Resp BP Pulse Ox 97.9 F 69 18 115/58 L 99 06/28/17 17:45 06/28/17 17:45 06/28/17 17:45 06/28/17 17:45 06/28/17 17:45 Discharge - Discharge Clinical Impression: Diarrhea Qualifiers: Diarrhea type: unspecified type Qualified Code(s): R19.7 - Diarrhea, unspecified Condition: Stable Disposition: HOME, SELF-CARE Instructions: Diarrhea, Nonspecific ([facility]) Additional Instructions: Tylenol as needed. Drink plenty of fluids. Follow-up if not better in 1 week, sooner for increasing pain, fever, blood in her stool, persistent vomiting, abdominal pain, or for any further concerns. Forms: Return to Work Referrals: [facility] [Provider Group] - Follow up as needed
== END 2017-06-28 18:35 | disposition home or self-care (01) ==
LOC: ER 17:37
DX: O26.92 Pregnancy related conditions, unspecified, second trimester (principal); R19.7 Diarrhea, unspecified
CPT/HCPCS: 99281

== ENCOUNTER 2017-10-21 13:26 | Inpatient (IN) | payer MEDICAID ==
[2017-10-22] MEDS ORDERED: RINGERS LACTATED IV ONE ×2 (18:55)
[2017-10-22] MEDS ORDERED: OXYTOCIN/NORMAL SALINE 20 UNIT/1,000 ML RTUINJ IV PRN (18:55)
[2017-10-22] MEDS ORDERED: SODIUM CHLORIDE IV ONE ×2 (18:55)
[2017-10-22] MEDS ORDERED: DINOPROSTONE 10 MG VAGINAL INSERT.SR PV PRN (18:55)
[2017-10-22] MEDS ORDERED: PENICILLIN G POTASSIUM 5,000,000 UNIT in DEXTROSE 5%-WATER 100 ML IV ONE (18:59)
[2017-10-22 19:34] LABS: ABSOLUTE EOSINOPHILS # (AUTO) 0.1 10^3/uL (0.0-0.6); ABSOLUTE LYMPHOCYTES (AUTO) 1.8 10^3/uL (0.5-4.7); ABSOLUTE MONOCYTES (AUTO) 0.7 10^3/uL (0.1-1.4); ABSOLUTE NEUT (AUTO) 6.7 10^3/uL (1.7-8.2); BASOPHILS % (AUTO) 0.3 % (0-2); EOSINOPHILS % (AUTO) 1.2 % (0-6); HEMATOCRIT 35.2 % (36.0-47.0); LYMPHOCYTES % (AUTO) 19.4 % (13-45); MEAN CORPUSCULAR HEMOGLOBIN 28.9 pg (27.0-33.4); MEAN CORPUSCULAR VOLUME 85 fl (80-97); MONOCYTES % (AUTO) 7.8 % (3-13); PLATELET COUNT 365 10^3/uL (150-450); RED BLOOD COUNT 4.15 10^6/uL (3.72-5.28); RED CELL DISTRIBUTION WIDTH 14.1 % (11.5-14.0); SEGMENTED NEUTROPHILS % (AUTO) 71.3 % (42-78); TOTAL CELLS COUNTED % (AUTO) 100 %; WHITE BLOOD COUNT 9.4 10^3/uL (4.0-10.5)
[2017-10-22] MEDS ORDERED: DINOPROSTONE 10 MG VAGINAL INSERT.SR ONE (20:18)
[2017-10-22] MEDS: RINGERS SOLUTION,LACTATED 1,000 ML IV PRN (20:24)
[2017-10-22 22:22] LABS: APPEARANCE,URINE TURBID; BILIRUBIN,URINE NEGATIVE (NEGATIVE); COLOR,URINE YELLOW; GLUCOSE, URINE NEGATIVE (NEGATIVE); KETONES,URINE NEGATIVE (NEGATIVE); LEUKOCYTE ESTERASE,URINE NEGATIVE (NEGATIVE); NITRITE,URINE NEGATIVE (NEGATIVE); PROTEIN,URINE 100 mg/dL (NEGATIVE); URINE SPECIFIC GRAVITY 1.031
[2017-10-22 22:36] LABS: URINE AMPHETAMINES SCREEN NEGATIVE; URINE BARBITURATES SCREEN NEGATIVE; URINE BENZODIAZEPINES SCREEN NEGATIVE; URINE COCAINE SCREEN NEGATIVE; URINE METHADONE SCREEN NEGATIVE; URINE PHENCYCLIDINE SCREEN NEGATIVE
[2017-10-22 22:42] LABS: URINE MARIJUANA (THC) SCREEN UNCONFIRMED POSITIVE
[2017-10-23] MEDS ORDERED: ZOLPIDEM TARTRATE 5 MG TABLET PO ONE (00:26)
[2017-10-23] MEDS: PENICILLIN G POTASSIUM 2,500,000 UNIT in DEXTROSE 5%-WATER 50 ML IV SCH ×3 (00:29→18:27)
[2017-10-23] MEDS ORDERED: ZOLPIDEM TARTRATE 5 MG TABLET ONE (00:34)
--- NOTE | 2017-10-23 09:31 | Admission Physical ---
Datetime Report Generated by CPN: 10/23/2017 09:30 CURRENT ADMISSION Hx Assessment: The History has been Reviewed and is Current Chief Complaint: Scheduled Induction of Labor Indication for Induction: Post Dates Admit Impression : Postterm, Intrauterine ; No Active Labor; Intact Membranes; Induction of Labor Admit Plan: Admit to Unit; Initiate Labor Induction Protocol ALLERGIES Medication Allergies: No Medication Allergies: No Known Allergies (10/23/2017) Latex: No Latex Allergies Food Allergies: n/a Environmental Allergies: N/A OBSTETRICAL HISTORY EDC: 10/12/2017 00:00 : 1 Para: 0 Term: 0 : 0 SAB: 0 IAB: 0 Ectopic: 0 Livin Cesareans: 0 VBACs: 0 Multiple Births: 0 Gestational Diabetes: No Rh Sensitization: No Incompetent Cervix: No LAMAR: No Infertility: No ART Treatment: No Uterine Anomaly: No IUGR: No Hx Previous C/S: No Macrosomia: No Hx Loss/Stillborn: No PIH: No Hx : No Placenta Previa/Abruption: No Depression/PP Depression: Yes PTL/PROM: No Post Hemorrhage: No Current Procedures: Ultrasound; NST Obstetrical History Comments: G1- current SEE RECORDS Alcohol: No Marijuana : No Cocaine: No Other Illicit Drugs: No Cigarettes: Never Smoker. [id number] MEDICAL HISTORY Diabetes: No Blood Transfusion: No Pulmonary Disease (Asthma, TB): No Breast Disease: No Hypertension: No Social Services Counselor Surgery: No Heart Disease: No Hosp/Surgery: No Autoimmune Disorder: No Anesthetic Complications: No Kidney Disease: No Abnormal Pap Smear: No Neuro/Epilepsy: No Psychiatric Disorders: No Other Medical Diseases: No Hepatitis/Liver Disease: No Significant Family History: No Varicosities/Phlebitis: No Trauma/Violence : No Thyroid Dysfunction: No Medical History Comments: depression INFECTIOUS HISTORY Gonorrhea: Yes Genital Herpes: No Chlamydia: Yes Tuberculosis: No Syphilis: No Hepatitis: No HIV/AIDS Exposure: No Rash or Viral Illness: No HPV: No PHYSICAL EXAM General: Normal HEENT: Deferred Neurologic: Normal Thyroid: Normal Heart: Normal Lungs: Normal Breast: Deferred Back: Normal Abdomen: Normal Genitourinary Exam: Normal Extremities: Normal DTRs: Normal Pelvic Type: Adequate Physical Exam Comments: + GBS, Obesity, Eczema MEMBRANES Membranes: Intact FETUS A EGA: 41.4 Monitoring: External US FHR- Baseline: 130 Admit Comment: Admitted for IOL post dates, Cat 1 strip, Cervidil in place PLANS FOR LABOR AND DELIVERY Labor and Delivery: None Pain Management: Epidural Feeding Preference: Formula Benefit of Breast Feed Discussed: Yes Circumcision: Yes INFORMED CONSENT Assignment: Kaylene Stewart MD Signature: with User ID: [email or web address] : with User ID: [email or web address]
--- NOTE | 2017-10-23 10:22 | L&D Progress Notes ---
PROGRESS NOTES Datetime Report Generated by CPN: 10/23/2017 10:22 PROGRESS NOTE Impression: Reassuring Heart Rate Plan: Continue Present Management; Induction Vital Signs : Reviewed; Within Normal Limits Comment: VE= 2-70-vtx-1 Start Pitocin and antibiotics Anticipate MEMBRANES Membranes: Intact FETUS A FHR - Baseline: 130 Monitoring: External US Variability: Moderate 6-25bpm Accelerations: 15X15 Decelerations: None SIGNATURE SIGNATURE: [id number] SIGNATURE: [id number] Assignment: Kaylene Stewart MD Signature: with User ID: [email or web address] : with User ID: [email or web address]
[2017-10-23] MEDS ORDERED: PENICILLIN G-K 5 MILLION UNIT VIAL ONE ×4 (10:24→22:04)
[2017-10-23] MEDS ORDERED: LIDOCAINE 1% INJ-PF (10 MG/ML) 30 ML SDV ONE (10:24)
[2017-10-23] MEDS ORDERED: OXYTOCIN/NORMAL SALINE 20 UNIT/1,000 ML RTUINJ ONE (10:24)
[2017-10-23] MEDS ORDERED: MISOPROSTOL 0.2 MG TABLET ONE (10:24)
[2017-10-23] MEDS: RINGERS SOLUTION,LACTATED 1,000 ML IV PRN ×2 (10:56→18:28)
--- NOTE | 2017-10-23 12:52 | L&D Progress Notes ---
PROGRESS NOTES Datetime Report Generated by CPN: 10/23/2017 12:52 PROGRESS NOTE Comment: Unable to keep heart rate on monitor, FSE applied,Cat 1 strip, scant fluid, VE 3/80/vtx/0 FETUS C SIGNATURE: [id number];[id number] Assignment: Kaylene Stewart MD Signature: with User ID: [email or web address] : with User ID: [email or web address]
[2017-10-23] MEDS ORDERED: NALBUPHINE HCL INJ 10 MG/1 ML AMPULE IV ONE (13:41)
[2017-10-23] MEDS ORDERED: NALBUPHINE HCL INJ 10 MG/1 ML AMPULE ONE (14:06)
[2017-10-23] MEDS ORDERED: FENTANYL/BUPIVACAINE/NS/PF 300 MCG/150 ML RTUINJ EPI ONE ×2 (15:49→23:44)
[2017-10-23] MEDS ORDERED: PHENYLEPHRINE HCL INJ/PF 10 MG/1 ML SDV ONE ×2 (15:49→23:44)
[2017-10-23] MEDS ORDERED: FENTANYL CITRATE INJ/PF 100 MCG/2 ML AMPUL ONE ×2 (15:49→23:44)
[2017-10-23] MEDS ORDERED: EPHEDRINE SULFATE INJ 50 MG/1 ML AMPULE ONE (15:49)
[2017-10-23] MEDS ORDERED: BUPIVACAINE HCL 0.25 % INJ/PF (2.5 MG/1 ML) 30 ML VIAL ONE ×2 (15:49→23:45)
[2017-10-23] MEDS ORDERED: LIDOCAINE 1.5%/EPINEPHRINE INJ-PF 30 ML SDV ONE (17:31)
[2017-10-23] MEDS ORDERED: SODIUM BICARBONATE 8.4% INJ 50 MEQ/50 ML DISP.SYRIN ONE (23:34)
[2017-10-24] MEDS: RINGERS SOLUTION,LACTATED 1,000 ML IV PRN (00:55)
[2017-10-24] MEDS ORDERED: CITRIC ACID/SODIUM CITRATE ORAL SOLN 15 ML UDCUP ONE (01:11)
[2017-10-24] MEDS ORDERED: CEFAZOLIN 2 GM/D5W RTU 2 GM/50 ML RTUPB IV ONE (01:12)
[2017-10-24] MEDS ORDERED: DIPH/PERTUSS(ACELL)/TETANUS VAC/PF 0.5 ML SYR (>=10YO) IM PRN (01:17)
[2017-10-24] MEDS ORDERED: HYDROMORPHONE HCL INJ/PF 2 MG/ML AMPULE IV PRN (01:17)
[2017-10-24] MEDS ORDERED: ACETAMINOPHEN 325 MG TABLET PO PRN (01:17)
[2017-10-24] MEDS ORDERED: ACETAMINOPHEN 1,000 MG/100 ML RTUPB IV PRN (01:17)
[2017-10-24] MEDS ORDERED: SIMETHICONE 80 MG TAB.CHEW PO PRN (01:17)
[2017-10-24] MEDS ORDERED: OXYCODONE-ACETAMINOPHEN 5-325 MG TABLET PO PRN (01:17)
[2017-10-24] MEDS ORDERED: PROMETHAZINE HCL INJ 25 MG/1 ML VIAL IV PRN ×3 (01:17→02:13)
[2017-10-24] MEDS ORDERED: RINGERS SOLUTION,LACTATED 1,000 ML IV PRN (01:17)
[2017-10-24] MEDS ORDERED: OXYTOCIN/NORMAL SALINE 20 UNIT/1,000 ML RTUINJ IV PRN (01:17)
[2017-10-24] MEDS ORDERED: MEASLES,MUMPS&RUBELLA VACC/PF 0.5 ML VIAL SUBCUT PRN (01:17)
[2017-10-24] MEDS ORDERED: OXYTOCIN/NORMAL SALINE 20 UNIT/1,000 ML RTUINJ ONE (01:38)
[2017-10-24] MEDS ORDERED: EPHEDRINE SULFATE INJ 50 MG/1 ML AMPULE ONE (01:39)
[2017-10-24] MEDS ORDERED: MIDAZOLAM 2 MG/2 ML INJ ONE (01:39)
[2017-10-24] MEDS ORDERED: OXYTOCIN 10 UNIT/ML VIAL ONE (01:39)
[2017-10-24] MEDS ORDERED: FENTANYL CITRATE INJ/PF 100 MCG/2 ML AMPUL ONE (01:39)
[2017-10-24] MEDS ORDERED: BUPIVACAINE HCL/DEX-WATER/PF 15 MG/2 ML AMPULE ONE (02:00)
[2017-10-24] MEDS ORDERED: FENTANYL CITRATE INJ/PF 100 MCG/2 ML AMPUL IV PRN ×3 (02:13)
[2017-10-24] MEDS ORDERED: MEPERIDINE HCL/PF INJ 25 MG/1 ML DISP.SYRIN IV PRN (02:13)
[2017-10-24] MEDS ORDERED: ONDANSETRON HCL INJ/PF 4 MG/2 ML SDV IV PRN (02:13)
[2017-10-24] MEDS ORDERED: DIPHENHYDRAMINE HCL 50 MG/ML VIAL IV PRN (02:13)
--- NOTE | 2017-10-24 02:54 | Operative Report ---
Operative Report DATE OF SURGERY: 10/24/17 PREOPERATIVE DIAGNOSIS: Cephalopelvic disproportion POSTOPERATIVE DIAGNOSIS: Same and persistent occiput posterior OPERATION: Primary via low transverse uterine incision SURGEON: MARCY ENRIQUEZ ANESTHESIA: Spinal TISSUE REMOVED OR ALTERED: Placenta COMPLICATIONS: None ESTIMATED BLOOD LOSS: 250 cc INTRAOPERATIVE FINDINGS: Viable male normal uterus tubes and ovaries PROCEDURE: Patient was taken to the OR and placed in supine position after her spinal anesthesia. She is prepared and draped in sterile fashion. Lee was placed for drainage of the bladder. Low transverse incision was made and carried down the level of the fascia. The fascial incision was made with knife and extended bilaterally with curved Bhagat scissors. The fascia was off the rectus muscles using sharp and blunt dissection. The rectus muscles are in the midline. The peritoneum was entered without incident. Bladder blade was placed in uterine segment was identified. A low transverse incision was made creating a bladder flap. Bladder blade was placed low transverse uterine incision was made with the csafe knife and extended with fingertips. The baby was delivered with some fundal pressure. Mouth and nose were suctioned free. The cord is doubly clamped and cut. Baby is passed off to the halal butcher in attendance. The placenta was manually extracted with trailing membranes. The uterus was externalized wrapped in a moist lap sponge. Uterine contents wiped free. Uterus was closed with a running locking layer of 0 chromic suture using the second layer to imbricate the first completing a double layer closure of the uterus. The serosa was closed with a running 2-0 chromic stitch. The pelvis was irrigated and suctioned free of fluid the uterus was replaced in the abdomen. The abdominal wall peritoneum was closed with running 2-0 chromic stitch. Fascia was closed with a running 0 Vicryl in 2 segments. Dickson's layer was brought together with 0 plain gut stitch and the skin was closed with running subcuticular 4-0 undyed Vicryl stitch. The wound was dressed mother and baby did well.
[2017-10-24] MEDS ORDERED: ACETAMINOPHEN 1,000 MG/100 ML RTUPB IV ONE (02:57)
[2017-10-24] MEDS ORDERED: MORPHINE SULFATE 10 MG/ML INJ ONE (03:57)
[2017-10-24] MEDS: MORPHINE SULFATE 10 MG/ML INJ IV PRN ×2 (03:58→04:30)
--- NOTE | 2017-10-24 05:36 | Delivery Summary ---
Del Sum A-C Datetime Report Generated by CPN: 10/24/2017 05:36 DELIVERY PERSONNEL DELIVERY PERSONNEL: [id number] Delivery Doctor:: Kaylene Stewart MD Anesthesiologist:: Sonia Gomez MD AUTOMOBILE DAMAGE FIELD APPRAISER:: Yamila Guerra CRNA Colliery Clerk:: Niya Zhou RN Neonatal Nurse Practitioner:: JAXSON [place] Nursery Nurse:: Keara Becker RN Plumbing Contractor/POPULATION GENETICIST: [facility] Plumbing Contractor/POPULATION GENETICIST: Sona Mcmahon, ELECTRICAL HIGH TENSION TESTER Additional Personnel: : Steve Duran POPULATION GENETICIST MATERNAL INFORMATION Delivery Anesthesia: Epidural Medications After Delivery: Pitocin Bolus-Please Comment Meds After Delivery Comment: 20 units of pitocin in 1 L NS bolusing per order Maternal Complications: None LABOR SUMMARY EDC: 10/12/2017 00:00 No. Babies in Womb: 1 Attempted: No Labor Anesthesia: Epidural LABOR INFORMATION Reason for Induction: Post Dates Onset of Labor: 10/23/2017 12:45 Cervical Ripening Agents: Cervidil Oxytocin: Induction Group B Beta Strep: positive Antibiotics # of Doses: 4 Antibiotics Time of Last Dose: 2211 Name of Antibiotic Given: PCN Steroids Given: None Reason Steroids Not Administered: Not Applicable MEMBRANES Membranes Rupture Method: Artificial Rupture of Membranes: 10/23/2017 12:45 Length of Rupture (hr): 13.55 Amniotic Fluid Color: Clear Amniotic Fluid Amount: Small Amniotic Fluid Odor: Normal STAGES OF LABOR Stage 3 hr: 0 Stage 3 min: 1 Total Time in Labor hr: 13 Total Time in Labor min: 34 VAGINAL DELIVERY Episiotomy: None Laceration #1: None Laceration Extension #1: N/A Laceration Repair: Not Applicable Sponge Count Correct: N/A Sharps Count Correct: N/A CSECTION DELIVERY Primary Indication: Secondary Arrest of Dilatation CSection Urgency: Non-Scheduled CSection Incidence: Primary Labor: Labor Elective: Nonelective CSection Incision: Lower Uterine Transverse BABY A INFORMATION Infant Delivery Date/Time: 10/24/2017 02:18 Method of Delivery: Born in Route : No : N/A Forceps: N/A Vacuum Extraction: N/A Shoulder Dystocia : No PRESENTATION/POSITION BABY A Presentation: Cephalic Cephalic Presentation: Vertex Vertex Position: OP Breech Presentation: N/A PLACENTA INFORMATION BABY A Placenta Delivery Time : 10/24/2017 02:19 Placenta Method of Delivery: Manual Removal Placenta Status: Delivered SCORES BABY A Heart Rate 1 min: >100 bpm Resp Effort 1 min: Good Cry Reflex Irritability 1 min: Cough or Sneeze or Pulls Away Muscle Tone 1 min: Active Motion Color 1 min: Body [place], Extremities Blue Resuscitation Effort 1 min: Tactile Stimulation SCORE 1 MIN: 9 Heart Rate 5 min: >100 bpm Resp Effort 5 min: Good Cry Reflex Irritability 5 min: Cough or Sneeze or Pulls Away Muscle Tone 5 min: Active Motion Color 5 min: Body [place], Extremities Blue Resuscitation Effort 5 min: Tactile Stimulation SCORE 5 MIN: 9 INFORMATION BABY A Gestational Age at Delivery: 41.5 Gestational Status: Late Term- 41- 41.6 Weeks Outcome : Liveborn Condition : Stable Sex: Male IDENTIFICATION BABY A Infant Verification Date/Time: 10/24/2017 02:21 ID Band Number: [id number] Mother's Name Verified: Yes Infant RN Verifying Infant: L. Eugenio RN/R.Ertel POPULATION GENETICIST WEIGHT/LENGTH BABY A Infant Birthweight (gm): 3355 Weight (lb): 7 Infant Weight (oz): 6 Infant Length (in): 20.50 Length (cm): 52.07 CORD INFORMATION BABY A No. Cord Vessels: 3 Nuchal Cord : Around Neck x1, Loose Cord Blood Taken: Yes-For Storage (Mom's Blood type +) ASSESSMENT BABY A Complications: Multiple Variable Decels; Other Complications- Other: prolonged decels Physical Findings at Delivery: Caput Succedaneum; Molding of the Head; Puncture Wound from Scalp Electrode Respirations: Appears Normal Skin to Skin: No Shuttle Operator/ALS Called : No Infant Care By: Shanda Becker RN Transferred To: [facility] BABY B INFORMATION : N/A
[2017-10-24] MEDS: IBUPROFEN 800 MG TABLET PO SCH ×4 (06:05→23:57)
[2017-10-24] MEDS ORDERED: HYDROMORPHONE HCL INJ/PF 2 MG/ML AMPULE ONE (06:21)
[2017-10-24] MEDS: DOCUSATE SODIUM 100 MG CAPSULE PO SCH ×2 (09:43→18:11)
[2017-10-24] MEDS: PRENATAL VITAMIN W DHA CAPSULE PO SCH (09:43)
[2017-10-24] MEDS: KETOROLAC TROMETHAMINE INJ/PF 30 MG/1 ML SDV IV SCH ×2 (09:44→16:41)
[2017-10-24] MEDS: OXYCODONE-ACETAMINOPHEN 5-325 MG TABLET PO PRN ×3 (10:19→21:03)
[2017-10-24] MEDS ORDERED: KETOROLAC TROMETHAMINE 60 MG/2 ML SDV ONE (19:12)
[2017-10-24] MEDS ORDERED: METOCLOPRAMIDE HCL INJ/PF 10 MG/2 ML SDV ONE (19:12)
[2017-10-24] MEDS ORDERED: DEXAMETHASONE SOD PHOSPHATE INJ 4 MG/1 ML VIAL ONE (19:12)
[2017-10-24] MEDS ORDERED: ONDANSETRON HCL INJ/PF 4 MG/2 ML SDV ONE (19:12)
[2017-10-25] MEDS: IBUPROFEN 800 MG TABLET PO SCH ×3 (05:12→17:14)
[2017-10-25 06:36] LABS: HEMATOCRIT 28.6 % (36.0-47.0); MEAN CORPUSCULAR HEMOGLOBIN 29.4 pg (27.0-33.4); MEAN CORPUSCULAR HGB CONC 34.2 g/dL (32.0-36.0); MEAN CORPUSCULAR VOLUME 86 fl (80-97); PLATELET COUNT 292 10^3/uL (150-450); RED BLOOD COUNT 3.33 10^6/uL (3.72-5.28); RED CELL DISTRIBUTION WIDTH 14.2 % (11.5-14.0); WHITE BLOOD COUNT 16.6 10^3/uL (4.0-10.5)
[2017-10-25 06:37] LABS: HEMOGLOBIN 9.8 g/dL (12.0-15.5)
[2017-10-25] MEDS: KETOROLAC TROMETHAMINE INJ/PF 30 MG/1 ML SDV IV SCH ×2 (08:13→17:16)
[2017-10-25] MEDS: DOCUSATE SODIUM 100 MG CAPSULE PO SCH ×2 (09:08→17:15)
[2017-10-25] MEDS: PRENATAL VITAMIN W DHA CAPSULE PO SCH (09:08)
[2017-10-25] MEDS: OXYCODONE-ACETAMINOPHEN 5-325 MG TABLET PO PRN ×3 (09:16→20:41)
--- NOTE | 2017-10-25 11:48 | PDOC PROGRESS REPORT ---
Subjective-OB Progress Note for:: 10/25/17 Subjective: reports bleeding slowing, pain controlled with current meds. no complaints or needs expressed, is passing gas and has had BM Physical Exam (OB) Vital Signs: Temp Pulse Resp BP Pulse Ox 98 F 85 20 142/67 H 99 10/25/17 08:00 10/25/17 08:00 10/25/17 08:00 10/25/17 08:00 10/25/17 08:00 Intake & Output 10/24/17 10/25/17 10/26/17 06:59 06:59 06:59 Intake Total 4142 Output Total 975 Balance 4142 -975 Weight 104.326 kg 103.7 kg - Dressing Removed: No Incision: Dressing, Draining - more than half saturated, RN requested to change , Well Approximated Closure Type: Op Site - Abdomen Description: Tender, Soft, Round Hernia Present: No Fundal Description: Firm, Midline Fundal Height: u/u - u/2 - Abdominal Inspection: Normal Distension: No distension - Extremities Lower extremities: Raz's sign - neg Calf: Normal, Nontender Objective-Diagnostic Laboratory: 10/25/17 06:00 10/25/17 06:00 WBC 16.6 H RBC 3.33 L Hgb 9.8 L D Hct 28.6 L MCV 86 MCH 29.4 MCHC 34.2 RDW 14.2 H Plt Count 292 Assessment and Plan(PN) - Assessment and Plan (1) delivery delivered Is this a current diagnosis for this admission?: Yes (2) Marijuana abuse Is this a current diagnosis for this admission?: Yes - Time Spent with Patient Time with patient: Less than 15 minutes Medications reviewed and adjusted accordingly: Yes - Disposition Anticipated Discharge: Home Within: within 24 hours
[2017-10-26] MEDS: IBUPROFEN 800 MG TABLET PO SCH ×2 (00:30→05:16)
[2017-10-26] MEDS: KETOROLAC TROMETHAMINE INJ/PF 30 MG/1 ML SDV IV SCH (01:20)
[2017-10-26] MEDS: PRENATAL VITAMIN W DHA CAPSULE PO SCH (09:18)
[2017-10-26] MEDS: DOCUSATE SODIUM 100 MG CAPSULE PO SCH (09:19)
--- NOTE | 2017-10-26 10:23 | PDOC DISCHARGE SUMMARY ---
Final Diagnosis Discharge Date: 10/26/17 - Final Diagnosis (1) delivery delivered Is this a current diagnosis for this admission?: Yes (2) Marijuana abuse Is this a current diagnosis for this admission?: Yes Discharge Data - Discharge Medication Prescriptions: Ferrous Sulfate 325 mg PO BID #60 tablet Home Medications: Vit/Iron Fum/Folic AC [ Tablet] 1 each PO DAILY 10/23/17 Docusate Sodium [Colace 100 mg Capsule] 100 mg PO BID capsule 10/26/17 Ferrous Sulfate 325 mg PO BID #60 tablet 10/26/17 Ibuprofen [Motrin 800 mg Tablet] 800 mg PO Q6 tablet 10/26/17 Oxycodone HCl/Acetaminophen [Percocet 5-325 mg Tablet] 1 tab PO Q4HP PRN tablet 10/26/17 Procedures: NST Intrapartum Procedure(s): : Low Cervical, Transverse - Diagnosis Test Laboratory: Temp Pulse Resp BP Pulse Ox 98.5 F 82 16 126/66 H 100 10/26/17 08:04 10/26/17 08:04 10/26/17 08:04 10/26/17 08:04 10/26/17 08:04 10/22/17 10/22/17 10/25/17 19:11 19:17 06:00 RBC 4.15 3.33 L Hgb 12.0 9.8 L D Hct 35.2 L 28.6 L Urine Opiates Screen NEGATIVE - Discharge information/Instructions Discharge Activity: Balance Activity w/Rest, Pelvic Rest Discharge Diet: Regular Disposition: HOME, SELF-CARE Follow up with: [facility] in: 1, Weeks
[2017-10-26 11:46] VITALS: BP 142/67
== END 2017-10-26 13:10 | disposition home or self-care (01) | DRG 765 ==
LOC: LR 10-22 18:42 → 2S 10-24 08:08
PROVIDERS: ADMIT Obstetrics & Gynecology; ATTEND Obstetrics & Gynecology
PROC: 4A1HXCZ Monitoring of Products of Conception, Cardiac Rate, External Approach (ICD-10-PCS; 2017-10-22)
PROC: 3E033VJ Introduction of Other Hormone into Peripheral Vein, Percutaneous Approach (ICD-10-PCS; 2017-10-23)
PROC: 3E0P7VZ Introduction of Hormone into Female Reproductive, Via Natural or Artificial Opening (ICD-10-PCS; 2017-10-23)
PROC: 4A1H7CZ Monitoring of Products of Conception, Cardiac Rate, Via Natural or Artificial Opening (ICD-10-PCS; 2017-10-23)
PROC: 10H073Z Insertion of Monitoring Electrode into Products of Conception, Via Natural or Artificial Opening (ICD-10-PCS; 2017-10-23)
PROC: 10D00Z1 Extraction of Products of Conception, Low, Open Approach (ICD-10-PCS; principal; 2017-10-24)
DX: O64.0XX0 Obstructed labor due to incomplete rotation of fetal head, not applicable or unspecified (principal); O99.324 Drug use complicating childbirth; O48.0 Post-term pregnancy; F12.10 Cannabis abuse, uncomplicated; O33.9 Maternal care for disproportion, unspecified; O99.344 Other mental disorders complicating childbirth; F32.9 Major depressive disorder, single episode, unspecified; O99.824 Streptococcus B carrier state complicating childbirth; O99.214 Obesity complicating childbirth; E66.9 Obesity, unspecified; Z68.39 Body mass index [BMI] 39.0-39.9, adult; O99.713 Diseases of the skin and subcutaneous tissue complicating pregnancy, third trimester; L30.9 Dermatitis, unspecified; O69.81X0 Labor and delivery complicated by cord around neck, without compression, not applicable or unspecified; Z3A.41 41 weeks gestation of pregnancy; Z37.0 Single live birth
CPT/HCPCS: 1961; 36415; 80307; 80349; 81005; 85025; 85027; 86592; 86850; 86900; 86901; 94760; 94799; G0480; J0131; J0690; J1100; J1170; J1885; J2250; J2270; J2300; J2370; J2405; J2540; J2590; J2765; J3010; J3490

== ENCOUNTER → 2018-08-12 | Outpatient (CLI) | payer SELFPAY ==
--- NOTE | 2018-08-12 15:30 | RADIOLOGY REPORT (SQ) ---
EXAM DESCRIPTION: U/S OB 14+ TRNABD 1GES W/O DOP COMPLETED DATE/TIME: 08/12/2018 1:54 pm REASON FOR STUDY: Z34.92 ENCNTR FOR SUPRVSN OF NORMAL PREG, UNSP, SECOND TRIMESTER Z34.92 ENCNTR FO R SUPRVSN OF NORMAL PREG, UNSP, SECOND TRIME COMPARISON: None. TECHNIQUE: Static and Dynamic grayscale imaging performed of gravid uterus using transabdominal appr oac. Additional selected color Doppler and spectral images recorded. All stored on PACS. LIMITATIONS: None. FINDINGS: FETUSES SEEN:1 EGA: 27 week 5 day. Calculated using BPD,FL,HC,AC documented on images. No discrepancy with clinical dates. RIDDHI: 11/06/2018. EFW: 1,137 grams PERCENTILE: 49%. SAMMIE: 13.3 PLACENTA: Posterior. GRADE: I PRESENTATION: Cephalic. ANATOMY: HEART RATE: 149 beats per minute. FOUR CHAMBER HEART: Visualized. THREE VESSEL CORD: Yes. CORD INSERTION: Visualized. KIDNEYS AND BLADDER: Visualized. Appear normal. STOMACH: Visualized. Appears normal. SPINE: Normal as visualized. BRAIN AND LATERAL VENTRICLES: Lateral ventricles not seen. Normal brain as visualized. OTHER: No other significant finding. MATERNAL ADNEXA: Maternal ovaries not visualized. CERVICAL LENGTH: 2.6 cm. Closed. OTHER: No other significant finding. IMPRESSION: LIVING INTRAUTERINE . ESTIMATED GESTATIONAL AGE 27 WEEK 5 DAY. NO VISUALIZED ANOMALIES. Trimester of : Second trimester - 13 weeks 1 day to 27 weeks 6 days. TECHNICAL DOCUMENTATION: JOB ID: [id number] [employer]- All Rights Reserved Reading location - IP/workstation name: [email or web address]
== END ==
LOC: RAD 12:50
PROVIDERS: ATTEND Midwife
DX: Z34.92 Encounter for supervision of normal pregnancy, unspecified, second trimester (principal)
CPT/HCPCS: 76805

== ENCOUNTER 2018-10-18 13:45 | Outpatient (CLI) | payer BC ==
[2018-10-18 14:37] LABS: APPEARANCE,URINE SLIGHTLY-CLOUDY; BILIRUBIN,URINE NEGATIVE (NEGATIVE); COLOR,URINE AMBER; GLUCOSE, URINE NEGATIVE (NEGATIVE); KETONES,URINE TRACE mg/dL (NEGATIVE); LEUKOCYTE ESTERASE,URINE SMALL (NEGATIVE); NITRITE,URINE NEGATIVE (NEGATIVE); PROTEIN,URINE 30 mg/dL (NEGATIVE); URINE SPECIFIC GRAVITY 1.023
--- NOTE | 2018-10-18 14:37 | Non Stress Test Report ---
Non Stress Test Datetime Report Generated by CPN: 10/18/2018 14:37 DEMOGRAPHIC EGA NST: 37.2 INDICATION Indication for Study: Decreased Movement VITAL SIGNS Temperature - NST: 98.6 RESP - NST: 20 MONITORING Monitor Explained: Monitor Explained; Test Explained; Patient Verbalized Understanding Time on Monitor: 10/18/2018 14:13 Time off Monitor: 10/18/2018 14:34 NST Duration: 21 NST INTERVENTIONS NST Interventions: None Physician Notified NST: Dr Lombardi BABY A: [id number] BABY A Movement : Present Contraction Frequency : none FHR Baseline : 135 FHR Baseline : 1 Accelerations : 15X15 Decelerations : None Variability : Moderate 6-25bpm NST Review: Meets Criteria for Reactive NST NST Review and Verified By : Tanika Islas RN NST Results: Reactive NST REPORT Report Trigger: Send Report
[2018-10-18 14:54] LABS: URINE AMPHETAMINES SCREEN NEGATIVE; URINE BARBITURATES SCREEN NEGATIVE; URINE BENZODIAZEPINES SCREEN NEGATIVE; URINE COCAINE SCREEN NEGATIVE; URINE METHADONE SCREEN NEGATIVE; URINE PHENCYCLIDINE SCREEN NEGATIVE
[2018-10-18 14:57] LABS: URINE MARIJUANA (THC) SCREEN UNCONFIRMED POSITIVE
== END 2018-10-18 14:40 | disposition home or self-care (01) ==
LOC: LC 13:45
PROVIDERS: ATTEND Obstetrics & Gynecology
PROC: 4A1HXCZ Monitoring of Products of Conception, Cardiac Rate, External Approach (ICD-10-PCS; principal; 2018-10-18)
DX: O36.8130 Decreased fetal movements, third trimester, not applicable or unspecified (principal); Z3A.37 37 weeks gestation of pregnancy
CPT/HCPCS: 59025; 80307; 81005